=== PATIENT | male | born 1960 | race Asian ===

== ENCOUNTER 2023-11-20 09:53 | Inpatient (IN) | payer MEDICAID ==
[~2023-11-20] VITALS: Ht 157.5 cm; Wt 56.2 kg
[2023-11-20] MEDS ORDERED: IOHEXOL 350 MG/ML 100 ML VIAL ONE (10:19)
[2023-11-20] MEDS ORDERED: SODIUM CHLORIDE 0.9% 100 ML ONE (10:19)
[2023-11-20 10:25] LABS: BASOPHILS % (AUTO) 0.5 % (0.0-2.0); EOSINOPHILS % (AUTO) 5.9 % (1.0-6.0); HEMATOCRIT 34.7 % (41-53); LYMPHOCYTES % (AUTO) 20.6 % (22.0-44.0); MEAN CORPUSCULAR HEMOGLOBIN 28.6 pg (26.0-34.0); MEAN CORPUSCULAR HGB CONC 34.5 G/dL (31.0-37.0); MEAN CORPUSCULAR VOLUME 83 fL (80-100); MONOCYTES # (AUTO) 0.7 K/uL (0.1-1.0); MONOCYTES % (AUTO) 7.3 % (2.0-9.0); NEUTROPHILS # (AUTO) 6.5 K/uL (1.8-7.7); NEUTROPHILS % (AUTO) 65.7 % (40.0-70.0); PLATELET COUNT (AUTO) 404 K/uL (150-450); RED BLOOD CELL COUNT(AUTO) 4.19 MIL/uL (4.50-5.90); RED CELL DISTRIBUTION WIDTH 14.8 % (11.5-14.5); WHITE BLOOD COUNT (AUTO) 9.8 K/uL (4.5-11.0)
[2023-11-20 10:32] LABS: CREATININE 1.38 mg/dL (0.60-1.30); POTASSIUM 3.4 mmol/L (3.5-5.1)
[2023-11-20 10:38] LABS: PROTHROMBIN TIME 10.6 SEC (9.4-11.6)
[2023-11-20 10:41] LABS: ALBUMIN 2.5 g/dL (3.4-5.0); TOTAL PROTEIN, SERUM 7.1 g/dL (6.4-8.2)
[2023-11-20 10:42] LABS: COVID AG,FIA SOURCE NASAL SWAB
[2023-11-20] MEDS: ACETAMINOPHEN 325 MG TABLET PO ONE (10:43)
[2023-11-20 10:46] LABS: TROPONIN I-HIGH SENSITIVITY 1861 ng/L (<76)
[2023-11-20 10:56] LABS: B-TYPE NATRIURETIC PEPTIDE 155 pg/mL (0-100)
[2023-11-20 11:00] LABS: ALCOHOL, BLOOD (SERUM) < 3 mg/dL (0-10)
[2023-11-20] MEDS ORDERED: ONDANSETRON HCL 4 MG/2 ML VIAL IVP PRN (11:00)
[2023-11-20] MEDS ORDERED: ACETAMINOPHEN 325 MG TABLET PO PRN (11:00)
[2023-11-20] MEDS: ASPIRIN 81 MG CHEWABLE TABLET PO SCH (11:12)
[2023-11-20] MEDS: AmLODIPine BESYLATE 5 MG TABLET PO SCH (11:12)
[2023-11-20] MEDS: ATORVASTATIN CALCIUM 40 MG TABLET PO SCH (11:12)
[2023-11-20] MEDS: POTASSIUM CHLORIDE 20 MEQ ER TABLET PO ONE (11:12)
[2023-11-20] MEDS ORDERED: HEPARIN SODIUM,PORCINE 5,000 UNITS/ML VIAL IVP PRN (11:15)
[2023-11-20] MEDS ORDERED: DEXTROSE 50%-WATER 25 GM/50 ML SYRINGE IVP PRN (11:15)
[2023-11-20 11:45] LABS: SARS-COV2 (COVID) ANTIGEN,FIA Negative (Negative)
[2023-11-20 12:36] LABS: TROPONIN I-HIGH SENSITIVITY 1686 ng/L (<76)
[2023-11-20] MEDS: HEPARIN SODIUM,PORCINE 5,000 UNITS/ML VIAL IVP PRN (12:43)
[2023-11-20] MEDS: HEPARIN SODIUM 25000 UNITS/D5W 250 ML IV PRN (12:50)
[2023-11-20 13:53] VITALS: BP 119/75; PULSE 69; RESP 20; TEMP 97.7
[2023-11-20 20:27] VITALS: BP 105/63; PULSE 78; RESP 20; TEMP 98
[2023-11-20] MEDS: DOCUSATE SODIUM 100 MG CAPSULE PO SCH (21:00)
[2023-11-20 23:58] VITALS: BP 115/70; PULSE 76; RESP 18; TEMP 97.7
[2023-11-21] MEDS ORDERED: HEPARIN SODIUM,PORCINE 5,000 UNITS/ML VIAL IVP PRN ×2 (01:00)
[2023-11-21 04:28] VITALS: BP 112/68; PULSE 82; RESP 19; TEMP 97.9
[2023-11-21] MEDS: INSULIN LISPRO 100 UNITS/ML SQ PRN (06:47)
[2023-11-21 08:01] LABS: BASOPHILS % (AUTO) 0.9 % (0.0-2.0); EOSINOPHILS % (AUTO) 6.3 % (1.0-6.0); HEMATOCRIT 33.3 % (41-53); HEMOGLOBIN 11.4 g/dL (13.5-17.5); LYMPHOCYTES # (AUTO) 2.2 K/uL (1.0-4.8); LYMPHOCYTES % (AUTO) 18.7 % (22.0-44.0); MEAN CORPUSCULAR HEMOGLOBIN 28.5 pg (26.0-34.0); MEAN CORPUSCULAR HGB CONC 34.3 G/dL (31.0-37.0); MEAN CORPUSCULAR VOLUME 83 fL (80-100); MONOCYTES # (AUTO) 0.9 K/uL (0.1-1.0); MONOCYTES % (AUTO) 7.4 % (2.0-9.0); NEUTROPHILS # (AUTO) 7.8 K/uL (1.8-7.7); NEUTROPHILS % (AUTO) 66.7 % (40.0-70.0); PLATELET COUNT (AUTO) 423 K/uL (150-450); WHITE BLOOD COUNT (AUTO) 11.8 K/uL (4.5-11.0)
[2023-11-21 08:17] LABS: ALANINE AMINOTRANSFERASE 27 U/L (12-78); ALBUMIN 2.4 g/dL (3.4-5.0); ALKALINE PHOSPHATASE 116 U/L (46-116); ANION GAP 10 mmol/L (8-16); ASPARTATE AMINOTRANSFERASE 27 U/L (15-37); BILIRUBIN,TOTAL 0.8 mg/dL (0.1-1.0); CALCIUM, TOTAL 8.7 mg/dL (8.8-10.5); CARBON DIOXIDE 28 mmol/L (22-29); CHLORIDE 98 mmol/L (98-107); CHOLESTEROL 203 mg/dL (131-200); CREATININE 1.19 mg/dL (0.60-1.30); GLOMERULAR FILTR. RATE CALC > 60 mL/min (>60); GLUCOSE,RANDOM 125 mg/dL (70-110); HDL CHOLESTEROL 51 mg/dL (40-60); LDL CHOL (CALC.) 92 mg/dL (0-130); POTASSIUM 3.5 mmol/L (3.5-5.1); SODIUM SERUM 136 mmol/L (136-145); TOTAL PROTEIN, SERUM 6.4 g/dL (6.4-8.2); TRIGLYCERIDES 301 mg/dL (15-150); UREA NITROGEN, BLOOD 21 mg/dL (7-18)
[2023-11-21] MEDS: FAMOTIDINE 20 MG TABLET PO SCH (08:20)
[2023-11-21 08:22] LABS: TROPONIN I-HIGH SENSITIVITY 1099 ng/L (<76)
[2023-11-21 08:24] VITALS: BP 112/59; PULSE 87; RESP 18; TEMP 98.2
[2023-11-21] MEDS: HEPARIN SODIUM 25000 UNITS/D5W 250 ML IV PRN (08:58)
[2023-11-21 12:03] VITALS: BP 109/62; PULSE 71; RESP 17; TEMP 97.6
[2023-11-21 12:27] LABS: GLUCOMETER DEV NAME(LOC) 5S.2C; GLUCOSE,POINT OF CARE 123 MG/DL (70-110)
[2023-11-21 12:27] LABS: GLUCOMETER DEV NAME(LOC) 5S.2C; GLUCOSE,POINT OF CARE 149 MG/DL (70-110)
[2023-11-21 19:26] VITALS: BP 132/66; PULSE 72; RESP 18; TEMP 98.1
[2023-11-22 00:22] VITALS: BP 128/70; PULSE 78; RESP 18; TEMP 97.9
[2023-11-22 03:31] VITALS: BP 108/68; PULSE 87; RESP 18; TEMP 98
[2023-11-22] MEDS: METOPROLOL SUCCINATE 25 MG ER TABLET PO SCH (08:34)
[2023-11-22 08:37] VITALS: BP 142/77; PULSE 87; RESP 20; TEMP 97.9
[2023-11-22] MEDS ORDERED: CLOPIDOGREL BISULFATE 75 MG TABLET PO SCH (09:00)
[2023-11-22] MEDS: TICAGRELOR 90 MG TABLET PO SCH (11:15)
[2023-11-22] MEDS ORDERED: LIDOCAINE 2% VISCOUS 15 ML SOLUTION UDCUP ONE ×2 (15:21→15:22)
[2023-11-22] MEDS ORDERED: FentaNYL CITRATE PF 100 MCG/2 ML VIAL ONE (15:22)
[2023-11-22] MEDS ORDERED: MIDAZOLAM HCL 2 MG/2 ML VIAL ONE (15:22)
[2023-11-22] MEDS: FentaNYL CITRATE PF 100 MCG/2 ML VIAL IVP ONE ×2 (16:26→16:28)
[2023-11-22] MEDS: LIDOCAINE 2% VISCOUS 15 ML SOLUTION UDCUP PO ONE (16:26)
[2023-11-22] MEDS: MIDAZOLAM HCL 2 MG/2 ML VIAL IVP ONE ×2 (16:27→16:30)
[2023-11-22 17:25] VITALS: BP 129/76; PULSE 78; RESP 20; TEMP 97.6
[2023-11-22 19:51] VITALS: BP 154/82; PULSE 74; RESP 18; TEMP 98
[2023-11-22 23:07] LABS: GLUCOMETER DEV NAME(LOC) 5S.1B; GLUCOSE,POINT OF CARE 156 MG/DL (70-110)
[2023-11-22 23:08] LABS: GLUCOMETER DEV NAME(LOC) 5S.1B; GLUCOSE,POINT OF CARE 119 MG/DL (70-110)
[2023-11-23 00:18] VITALS: BP 119/59; PULSE 76; RESP 18; TEMP 97.9
[2023-11-23 01:26] LABS: GLUCOMETER DEV NAME(LOC) 5N.1D; GLUCOSE,POINT OF CARE 204 MG/DL (70-110)
[2023-11-23 01:27] LABS: GLUCOMETER DEV NAME(LOC) 5N.1D; GLUCOSE,POINT OF CARE 197 MG/DL (70-110)
[2023-11-23 01:27] LABS: GLUCOMETER DEV NAME(LOC) 5N.1D; GLUCOSE,POINT OF CARE 191 MG/DL (70-110)
[2023-11-23 01:27] LABS: GLUCOMETER DEV NAME(LOC) 5N.1D; GLUCOSE,POINT OF CARE 121 MG/DL (70-110)
[2023-11-23 05:02] VITALS: BP 132/80; PULSE 84; RESP 16; TEMP 97.5
[2023-11-23 06:46] LABS: ALANINE AMINOTRANSFERASE 32 U/L (12-78); ALBUMIN 2.5 g/dL (3.4-5.0); ALKALINE PHOSPHATASE 107 U/L (46-116); ANION GAP 8 mmol/L (8-16); ASPARTATE AMINOTRANSFERASE 33 U/L (15-37); CALCIUM, TOTAL 8.4 mg/dL (8.8-10.5); CARBON DIOXIDE 26 mmol/L (22-29); CHLORIDE 100 mmol/L (98-107); CREATININE 0.89 mg/dL (0.60-1.30); GLOMERULAR FILTR. RATE CALC > 60 mL/min (>60); GLUCOSE,RANDOM 141 mg/dL (70-110); POTASSIUM 3.4 mmol/L (3.5-5.1); SODIUM SERUM 134 mmol/L (136-145); TOTAL PROTEIN, SERUM 6.2 g/dL (6.4-8.2); UREA NITROGEN, BLOOD 14 mg/dL (7-18)
[2023-11-23 06:52] LABS: TROPONIN I-HIGH SENSITIVITY 819 ng/L (<76)
[2023-11-23 07:05] LABS: GLUCOMETER DEV NAME(LOC) 5S.1B; GLUCOSE,POINT OF CARE 134 MG/DL (70-110)
[2023-11-23] MEDS ORDERED: POTASSIUM CHL 10 MEQ/WATER 50 ML IV PRN (07:45)
[2023-11-23] MEDS: POTASSIUM CHLORIDE 20 MEQ ER TABLET PO PRN (08:08)
[2023-11-23 08:31] VITALS: BP 139/78; PULSE 78; RESP 17; TEMP 98
[2023-11-23] MEDS ORDERED: TICA90TA PO (10:44)
[2023-11-23 10:59] VITALS: BP 120/72; PULSE 90; RESP 18; TEMP 97.4
[2023-11-23] MEDS ORDERED: FURO40 PO (11:26)
[2023-11-23] MEDS ORDERED: PRED-729 PO (11:26)
[2023-11-23] MEDS ORDERED: METO-558 PO (11:26)
[2023-11-23] MEDS ORDERED: ASPI-1450 PO (11:26)
[2023-11-23] MEDS ORDERED: DARO300T PO (11:26)
[2023-11-23] MEDS ORDERED: FERR325T27 PO (11:26)
[2023-11-23] MEDS ORDERED: ATOR40TA28 PO (11:26)
[2023-11-23] MEDS ORDERED: DEXA4 PO (11:26)
[2023-11-23] MEDS ORDERED: METF-81 PO (11:26)
[2023-11-23] MEDS ORDERED: NITR0.4T52 SL (11:26)
[2023-11-23] MEDS ORDERED: EMPA25TA3 PO (11:26)
[2023-11-23] MEDS ORDERED: MULT-1366 PO (11:26)
[2023-11-23 11:43] LABS: APPEARANCE,URINE CLEAR (CLEAR); BILIRUBIN,URINE NEGATIVE (NEGATIVE); COLOR,URINE LIGHT YELLOW (YELLOW); GLUCOSE, URINE (UA) >=1000 mg/dL (NEGATIVE); KETONES,URINE NEGATIVE (NEGATIVE); LEUKOCYTE ESTERASE ,URINE NEGATIVE (NEGATIVE); NITRATE,URINE NEGATIVE (NEGATIVE); OCCULT BLOOD,URINE NEGATIVE (NEGATIVE); PH,URINE 6.5 (5.0-8.0); PROTEIN,URINE 30-70 mg/dL (NEGATIVE); SPECIFIC GRAVITIY, URINE 1.012 (1.003-1.030); UROBILINOGEN,URINE <=1.0 mg/dL (<=1.0)
[2023-11-23 11:56] LABS: BACTERIA,URINE None Seen /HPF (None Seen); RBC,URINE None Seen /HPF (0-2); WBC,URINE None Seen /HPF (0-5)
== END 2023-11-23 11:45 | disposition home or self-care (01) | DRG 45 ==
LOC: EMS 09:54 → AHU 12:01 → 5S 13:27
PROVIDERS: ADMIT Internal Medicine; ATTEND Internal Medicine
DX: I63.9 Cerebral infarction, unspecified (principal); I21.4 Non-ST elevation (NSTEMI) myocardial infarction; E11.9 Type 2 diabetes mellitus without complications; Z20.822 Contact with and (suspected) exposure to COVID-19; I25.10 Atherosclerotic heart disease of native coronary artery without angina pectoris; N28.9 Disorder of kidney and ureter, unspecified; E87.6 Hypokalemia; I10 Essential (primary) hypertension; Z95.1 Presence of aortocoronary bypass graft; Z83.3 Family history of diabetes mellitus; Z86.73 Personal history of transient ischemic attack (TIA), and cerebral infarction without residual deficits; Z88.8 Allergy status to other drugs, medicaments and biological substances
CPT/HCPCS: 70496; 70498; 70551; 71045; 80053; 80061; 81001; 82948; 82962; 83880; 84484; 85025; 85610; 85730; 86850; 86900; 86901; 87081; 92610; 93005; 93306; 93312; 97116; 97163; 97165; 97530; 97535; 99285; G0480; J1644; J2250; J3010; J7050; Q9967; 36415-L1; 36415-TC; 70450; 70450-TC